=== PATIENT | female | born 1945 | race Caucasian/White ===

== ENCOUNTER 2016-08-30 22:31 | Emergency (ER) | payer MEDICARE, OTHER ==
[~2016-08-30] VITALS: Ht 152.4 cm; Wt 86.8 kg
[~2016-08-30 22:31] MED LIST: ALLO100T PO; BENA20TA PO; HYDR-2768 PO; LOVA40TA PO; METF500 PO; POTA20IN3 PO; RANI300T PO; TRAM-388 PO
[2016-08-30 23:19] VITALS: BP 138/55; PULSE 73; RESP 18; TEMP 98.6; O2SAT 96
[2016-08-31] MEDS ORDERED: POTA-163 PO (01:39)
[2016-08-31] MEDS ORDERED: LOVA40TA PO (01:39)
[2016-08-31] MEDS ORDERED: ALLO100T PO (01:39)
[2016-08-31] MEDS ORDERED: ASPI1TAB69 PO (01:39)
[2016-08-31] MEDS ORDERED: RANI300T PO (01:39)
[2016-08-31] MEDS ORDERED: TRAM-388 PO (01:39)
[2016-08-31] MEDS ORDERED: METF1000 PO (01:39)
[2016-08-31] MEDS ORDERED: BENA20TA PO (01:39)
[2016-08-31] MEDS ORDERED: HYDR25TA5 PO (01:39)
[2016-08-31] MEDS ORDERED: TIZA4CAP3 PO (01:39)
[2016-08-31] MEDS ORDERED: GABA300C5 PO (01:39)
[2016-08-31 01:40] VITALS: BP 153/68; PULSE 67; RESP 18; TEMP 98.6; O2SAT 97
--- NOTE | 2016-08-31 01:49 | PD ---
HPI Chief Complaint: Laceration/Skin Injury Time Seen by Provider: 01:46 Travel History International Travel<30 days: No Contact w/Intl Traveler<30days: No Traveled to known affect area: No History of Present Illness HPI The patient is a 70-year-old female that fell backwards and lacerated the back of her head on a glass shelf one hour ago. She says the reason she fell was because she lost balance. There was no loss of consciousness nor any syncopal or presyncopal episode prior to this event. She denies any nausea or vomiting. The incident happened at 9 PM this evening. Her last tetanus shot was probably well over 10 years ago. PFSH Past Medical History Hx Anticoagulant Therapy: Yes High Cholesterol: Yes Diabetes: Yes GERD: Yes Gout: Yes Hypertension: Yes ?: Not Past Surgical History Appendectomy: Yes Section: Yes (X2) Eye Surgery: Yes (CATARACT) Social History Alcohol Use: No Tobacco Use: No Substance Use: No Allergies-Medications (Allergen,Severity, Reaction): Coded Allergies: No Known Allergies (Unverified , 08/31/16) Reported Meds & Prescriptions Reported Meds & Active Scripts Active Reported Aspirin 81 Mg Tabdr 81 Mg PO DAILY Gabapentin 300 Mg Cap 300 Mg PO TID Tizanidine (Tizanidine HCl) 4 Mg Cap 4 Mg PO BID Ranitidine (Ranitidine HCl) 300 Mg Tab 300 Mg PO BID Allopurinol 100 Mg Tab 100 Mg PO DAILY Lovastatin 40 Mg Tab 40 Mg PO DAILY Hydrochlorothiazide 25 Mg Tab 25 Mg PO DAILY Benazepril (Benazepril HCl) 20 Mg Tab 20 Mg PO BID Tramadol-Acetaminophen 37.5-325 mg Tab 1 Tab PO Q6H PRN Potassium Chloride ER (Potassium Chloride) 20 Meq Tab 20 Meq PO DAILY Metformin (Metformin HCl) 1,000 Mg Tab 1,000 Mg PO BIDPC With meals Review of Systems Except as stated in HPI: all other systems reviewed are Neg Physical Exam Narrative GENERAL: Well-nourished, well-developed patient in slight apparent distress with her occipital laceration on her forehead. The patient is alert and oriented 3 and answers questions quickly and appropriately. SKIN: Warm and dry. There is a 1 cm laceration on the forehead but there is no associated skull deformity. HEAD: Normocephalic. Neither raccoon eyes nor connell sign is present. EYES: No scleral icterus. No injection or drainage. NECK: Supple, trachea midline. No JVD or lymphadenopathy. CARDIOVASCULAR: Regular rate and rhythm without murmurs, gallops, or rubs. RESPIRATORY: Breath sounds equal bilaterally. No accessory muscle use. GASTROINTESTINAL: Abdomen soft, non-tender, nondistended. MUSCULOSKELETAL: No cyanosis, or edema. BACK: Nontender without obvious deformity. No CVA tenderness. Data Data Last Documented VS Vital Signs Date Time Temp Pulse Resp B/P Pulse Ox O2 Delivery O2 Flow Rate FiO2 08/31/16 01:43 73 18 08/31/16 01:40 98.6 153/68 97 Orders Wound Care (08/31/16 01:49) Lidocai-Epi 1%-1:100,000 Inj (Xylocaine- (08/31/16 02:00) Tetanus/Diphtheria Tox Adult (Tetanus/Di (08/31/16 02:00) MDM Medical Decision Making Medical Screen Exam Complete: Yes Emergency Medical Condition: Yes Medical Record Reviewed: Yes Differential Diagnosis Scalp laceration, skull fracturehighly unlikely, intracranial bleedhighly unlikely Narrative Course The patient has a scalp laceration. This laceration did not need deep stitches and will be satisfactorily closed with arjun. The length is 1 cm long. Procedures Procedure Narrative The laceration was infiltrated with lidocaine with epinephrine. It was then thoroughly irrigated/cleaned with saline. Under sterile technique 6 arjun were put in. The patient tolerated the procedure well. The laceration was 1 cm long. Physician Communication Physician Communication As we discussed, if you have any problems please return to emergency department. Normally the stitches come out at approximately 10 days. Diagnosis Primary Impression: Occipital scalp laceration Additional Instructions: Scalp laceration Med/Other Pt SpecificInfo: No Change to Meds Disposition: 01 DISCHARGE HOME Condition: Stable Medhat Bain MD Aug 31, 2016 01:49
[2016-08-31] MEDS ORDERED: TETANUS/DIPHTHERIA TOXOID ADULT 0.5 ML VIAL IM ONE (02:00)
[2016-08-31] MEDS ORDERED: LIDOCAINE 1%/EPINEPHrine 1:100,000 SOLN 20 ML VIAL INFIL ONE (02:00)
[2016-08-31 02:17] VITALS: BP 142/64; PULSE 72; RESP 18; O2SAT 97
== END 2016-08-31 02:18 | disposition home or self-care (01) ==
LOC: PHED 22:31
DX: S01.01XA Laceration without foreign body of scalp, initial encounter (principal); Z79.01 Long term (current) use of anticoagulants; E78.00 Pure hypercholesterolemia, unspecified; E11.9 Type 2 diabetes mellitus without complications; I10 Essential (primary) hypertension; M10.9 Gout, unspecified; K21.9 Gastro-esophageal reflux disease without esophagitis; Z23 Encounter for immunization; W19.XXXA Unspecified fall, initial encounter; Y99.8 Other external cause status
CPT/HCPCS: 12001; 90471; 90714

== ENCOUNTER 2016-09-09 10:14 | Emergency (ER) | payer MEDICARE, OTHER ==
[~2016-09-09] VITALS: Ht 152.4 cm; Wt 83.0 kg
[~2016-09-09 10:14] MED LIST changes: +ASPI1TAB69 PO; +GABA300C5 PO; -HYDR-2768 PO; +HYDR25TA5 PO; +METF1000 PO; -METF500 PO; +POTA-163 PO; -POTA20IN3 PO; +TIZA4CAP3 PO
[2016-09-09 10:19] VITALS: BP 132/71; PULSE 92; RESP 16; TEMP 97.7; O2SAT 99
--- NOTE | 2016-09-09 10:27 | PD ---
HPI Chief Complaint: Wound/Suture/Staple Re-Check Time Seen by Provider: 10:23 Travel History International Travel<30 days: No Contact w/Intl Traveler<30days: No Traveled to known affect area: No History of Present Illness HPI Pleasant 70-year-old female here with complaint of suture removal. Patient had a fall approximately 10 days ago, and sustained a laceration on her occiput. Somers were placed and she presents for staple removal. Her wound has been healing well. She also notes right low back pain since the fall. No midline back pain. She is able to ambulate without difficulty. Pain is mild. No radiation down the leg, numbness or tingling, loss of bowel or bladder function. PFSH Past Medical History Hx Anticoagulant Therapy: Yes High Cholesterol: Yes Diabetes: Yes Diminished Hearing: No GERD: Yes Gout: Yes Hypertension: Yes Menopausal: Yes Past Surgical History Appendectomy: Yes Section: Yes (X2) Eye Surgery: Yes (CATARACT) Social History Alcohol Use: No Tobacco Use: No Substance Use: No Allergies-Medications (Allergen,Severity, Reaction): Coded Allergies: No Known Allergies (Unverified , 09/09/16) Reported Meds & Prescriptions Reported Meds & Active Scripts Active Reported Aspirin 81 Mg Tabdr 81 Mg PO DAILY Gabapentin 300 Mg Cap 300 Mg PO TID Tizanidine (Tizanidine HCl) 4 Mg Cap 4 Mg PO BID Ranitidine (Ranitidine HCl) 300 Mg Tab 300 Mg PO BID Lovastatin 40 Mg Tab 40 Mg PO DAILY Hydrochlorothiazide 25 Mg Tab 25 Mg PO DAILY Benazepril (Benazepril HCl) 20 Mg Tab 20 Mg PO BID Tramadol-Acetaminophen 37.5-325 mg Tab 1 Tab PO Q6H PRN Potassium Chloride ER (Potassium Chloride) 20 Meq Tab 20 Meq PO DAILY Metformin (Metformin HCl) 1,000 Mg Tab 1,000 Mg PO BIDPC With meals Review of Systems General / Constitutional: No: Fever Cardiovascular: No: Chest Pain or Discomfort Respiratory: No: Shortness of Breath Gastrointestinal: No: Abdominal Pain Musculoskeletal: Positive: Pain Skin: No Rash Neurologic: No: Weakness Physical Exam Narrative GENERAL: Elderly female in no acute distress SKIN: Warm and dry. HEAD: Occipital scalp laceration well-healed. Normocephalic. EYES: No scleral icterus. No injection or drainage. ENT: Mucous membranes pink and moist. NECK: Supple without midline tenderness to palpation CARDIOVASCULAR: Regular rate and rhythm. RESPIRATORY: No accessory muscle use. MUSCULOSKELETAL: No midline tenderness to palpation of the thoracic or lumbar spine. Patient has right sided paraspinous muscle tenderness to palpation without palpable spasm. No reproducible S I tenderness to palpation or pain with movement of the pelvis. Normal gait. Distal sensation, reflexes, strength intact. NEUROLOGICAL: Awake and alert. Normal speech. PSYCHIATRIC: Appropriate mood and affect; insight and judgment normal. Data Data Last Documented VS Vital Signs Date Time Temp Pulse Resp B/P Pulse Ox O2 Delivery O2 Flow Rate FiO2 09/09/16 10:19 97.7 92 16 132/71 99 MDM Medical Decision Making Medical Screen Exam Complete: Yes Emergency Medical Condition: Yes Medical Record Reviewed: Yes Differential Diagnosis 70-year-old female here with complaint of staple removal and low back pain since fall 10 days ago. Her wound is well-healed, arjun will be removed. With regard to her low back pain, this is not midline and is more right sided within the muscles of the lumbar spine. I do not think that this warrants imaging at this time for fracture. Narrative Course Arjun were removed. Patient encouraged to follow up with outpatient PCP if symptoms of low back pain persists. Diagnosis Primary Impression: Removal of staple Additional Impression: Low back pain Qualified Code: M54.5 - Acute right-sided low back pain without sciatica Referrals: Primary Care Physician as needed Additional Instructions: Follow-up with primary care provider if low back pain persist and return to the ER for the warning signs discussed. Med/Other Pt SpecificInfo: No Change to Meds Disposition: 01 DISCHARGE HOME Condition: Stable Kaleigh Lobo MD Sep 09, 2016 10:27
== END 2016-09-09 10:38 | disposition home or self-care (01) ==
LOC: PHED 10:14
DX: Z48.02 Encounter for removal of sutures (principal); S01.01XD Laceration without foreign body of scalp, subsequent encounter; E78.00 Pure hypercholesterolemia, unspecified; E11.9 Type 2 diabetes mellitus without complications; I10 Essential (primary) hypertension
CPT/HCPCS: 99281